=== PATIENT | female | born 1970 | race Caucasian/White ===

== ENCOUNTER 2017-05-27 20:55 | Emergency (ER) | payer BC ==
[~2017-05-27] VITALS: Ht 162.6 cm; Wt 62.6 kg
--- NOTE | 2017-05-27 21:05 | Emergency Room Report ---
History of Present Illness General Chief Complaint: Abdominal Pain Source: Patient, EMS Present Illness HPI Is a 47-year-old female who said she is perimenopausal. Hasn't had her menstrual period for 3 months. On Tuesday she had blood work done which show her hCG level is 10. She has no pain until today. Now she has suprapubic pain that started this afternoon. Sharp in nature. Lights and waning. No bleeding. No nausea no vomiting. No fever or chills. Pain is 8/10. Allergies: Coded Allergies: No Known Allergies (Unverified , 05/27/17) Patient History Past Medical History: see triage record, old chart reviewed Past Surgical History: , other Pertinent Family History: none Social History: Denies: smoking Now: No Immunizations: other Reviewed Nursing Documentation: PMH: Agreed, PSxH: Agreed Nursing Documentation-PMH Past Medical History: No History, Except For Review of Systems Eye: Denies: eye pain, blurred vision ENT: Denies: ear pain, nose congestion, throat swelling Respiratory: Denies: cough, shortness of breath Cardiovascular: Denies: chest pain, palpitations Gastrointestinal: Denies: abdominal pain, diarrhea, nausea, vomiting Musculoskeletal: Denies: back pain, joint pain Skin: Denies: rash Neurological: Denies: headache, numbness Endocrine: Denies: increased thirst, increased urine Hematologic/Lymphatic: Denies: easy bruising All Other Systems: negative except mentioned in HPI Physical Exam Vital Signs Date Time Temp Pulse Resp B/P (MAP) Pulse Ox O2 Delivery O2 Flow Rate FiO2 05/27/17 20:41 98.2 78 16 144/98 99 Room Air vitals unremarkable Sp02 EP Interpretation: reviewed, normal General Appearance: well appearing, no apparent distress, alert Head: normocephalic, atraumatic Eyes: bilateral eye PERRL, bilateral eye EOMI ENT: hearing grossly normal, normal pharynx Neck: full range of motion, supple, no meningismus Respiratory: chest non-tender, lungs clear, normal breath sounds Cardiovascular #1: regular rate, rhythm, no murmur Gastrointestinal: normal bowel sounds, no mass, no organomegaly, no bruit, non- distended, tenderness - Mild suprapubic. Musculoskeletal: back normal, gait/station normal, normal range of motion Psychiatric: mood/affect normal Skin: warm/dry Medical Decision Making Diagnostic Impression: Primary Impression: Pelvic pain ER Course Patient presents with pelvic pain. Ultrasound showed a 2.6 cm cystic structure in the uterus. Her hCG is hand. This is a same number on Tuesday. She has a history of opioid abuse and currently on Subetex. She does not want any opioid here. We'll discharge home. I see no evidence of ectopic. No evidence of surgical abdomen. Has an appointment with [employer] [facility] but not for 2 weeks. Family will try to get in tomorrow. Lab Results Impression labs unremarkable CT/MRI/US Diagnostic Results CT/MRI/US Diagnostic Results : Imaging Test Ordered: Pelvic ultrasound Impression Read by radiologist. Urine cyst versus fibroid. Last Vital Signs Date Time Temp Pulse Resp B/P (MAP) Pulse Ox O2 Delivery O2 Flow Rate FiO2 05/27/17 20:41 98.2 78 16 144/98 99 Room Air Status: improved Disposition: HOME, SELF-CARE Condition: Stable Additional Instructions: followup with your [employer] [facility] as soon as possible. Return if symptom worsen. May take Tylenol with Motrin for pain. DODIE PUGH M.D. May 27, 2017 21:05
[2017-05-27 21:29] VITALS: BP 144/98
[2017-05-27 21:41] LABS: APPEARANCE,URINE CLEAR; BILIRUBIN, URINE NEGATIVE (NEGATIVE); COLOR,URINE PALE YELLOW; GLUCOSE, URINE (UA) NEGATIVE (NEGATIVE); KETONES,URINE NEGATIVE (NEGATIVE); LEUKOCYTE ESTERASE ,URINE 1+ (NEGATIVE); NITRITE,URINE NEGATIVE (NEGATIVE); PH,URINE 7 (4.5-8.0); PROTEIN,URINE NEGATIVE (NEGATIVE); UROBILINOGEN,URINE NORMAL MG/DL (0.0-1.0)
[2017-05-27 22:06] LABS: BASOPHILS % (AUTO) 1.4 % (0.0-2.0); EOSINOPHILS % (AUTO) 0.8 % (0.0-3.0); HEMATOCRIT 40.3 % (37.0-47.0); HEMOGLOBIN 12.1 G/DL (12.0-16.0); LYMPHOCYTES % (AUTO) 22.9 % (20.0-45.0); MEAN CORPUSCULAR VOLUME 79 FL (80-99); NEUTROPHILS % (AUTO) 68.9 % (45.0-75.0); PLATELET COUNT 263 K/UL (150-450); RED BLOOD COUNT 5.08 M/UL (4.20-5.40); RED CELL DISTRIBUTION WIDTH 14.6 % (11.6-14.8); WHITE BLOOD COUNT 7.6 K/UL (4.8-10.8)
[2017-05-27 22:27] LABS: ANION GAP 8 mmol/L (5-15); BLOOD UREA NITROGEN 16 mg/dL (7-18); CALCIUM 9.9 MG/DL (8.5-10.1); CARBON DIOXIDE 30 MMOL/L (21-32); CHLORIDE 102 MMOL/L (98-107); CREATININE 0.7 MG/DL (0.55-1.30); POTASSIUM 3.8 MMOL/L (3.5-5.1); SODIUM 139 MMOL/L (136-145)
[2017-05-27] MEDS ORDERED: Ketorolac 30mg Inj IV ONE (23:15)
[2017-05-28 00:02] VITALS: BP 138/92
--- NOTE | 2017-05-28 12:56 | Diagnostic Imaging Report ---
Indication: Pain Technique: Transabdominal and endovaginal pelvic ultrasound was performed. Findings: Uterus measures 6 x 3.8 x 2.7 cm. Endometrium measures 2.7 mm in thickness. A well-circumscribed hypoechoic structure at the posterior aspect of the uterus measures 3.8 x 3.6 mm. This may represent a fibroid or cyst. An anechoic structure in the cervix measuring up to 9 mm may represent a nabothian cyst. Right ovary measures 2 x 1.1 x 1.3 cm/1.5 cc. Left ovary measures 1.9 x 1.6 x 1.2 cm/1.8 cc. No adnexal mass identified. Color flow to the bilateral ovaries seen. IMPRESSION: Possible subcentimeter uterine fibroid versus cyst. Cervical nabothian cyst. No evidence to suggest ovarian torsion at this time. This corresponds with the [facility] preliminary report.
== END 2017-05-27 23:49 | disposition home or self-care (01) ==
LOC: EDBD 20:55 → EMR 21:30
DX: R10.2 Pelvic and perineal pain (principal); N88.8 Other specified noninflammatory disorders of cervix uteri
CPT/HCPCS: 36415; 76856; 80048; 81003; 81025; 84702; 85025; 96374; 99284; J1885